=== PATIENT | female | born 1970 | race Caucasian/White ===

== ENCOUNTER 2016-10-08 01:35 | Inpatient (IN) | payer OTHER ==
[~2016-10-08] VITALS: Ht 165.1 cm; Wt 72.2 kg
[2016-10-08] VITALS (10 sets, daily range): BP systolic 97–118; BP diastolic 46–64; PULSE 93–112; TEMP 98.1–99.9
[2016-10-08] MEDS ORDERED: PRIL40 PO (02:22)
[2016-10-08] MEDS ORDERED: ULTRAM 50MG TAB50 MG (02:23)
[2016-10-08] MEDS ORDERED: CELEBREX 200MG200 MG (02:23)
[2016-10-09] VITALS (7 sets, daily range): BP systolic 92–136; BP diastolic 51–67; PULSE 108–123; TEMP 97.8–100.8
[2016-10-10] VITALS (7 sets, daily range): BP systolic 94–119; BP diastolic 60–68; PULSE 77–109; TEMP 97.5–100.1
[2016-10-10] MEDS ORDERED: NORCO 325 MG-51 TAB PO (05:23)
[2016-10-10] MEDS ORDERED: AMOXICILLIN 8751 TAB PO (05:23)
[2016-10-10] MEDS ORDERED: COLACE 100100 MG/CAP PO (05:25)
[2016-10-10 07:12] LABS: BASO % 0.2 % (0.0-2.0); EOS # 0.1 (0.0-0.7); EOS % 0.5 % (0-4.0); GRAN # 9.4 (1.4-6.5); GRAN % 86.9 % (42.2-75.2); HEMATOCRIT 37.5 % (37.0-47.0); HEMOGLOBIN 12.4 g/dl (12.5-16.0); LYMPH # 0.8 (1.2-3.4); LYMPH % 7.7 % (20.0-51.0); MEAN CELL VOLUME 88 fl (80.0-100.0); MEAN CORPUSCULAR HEMOGLOBIN 29 pg (27.0-31.0); MEAN CORPUSCULAR HGB CONC 33 g/dl (33.0-37.0); MEAN PLATELET VOLUME 9.9 fl (7.4-10.4); MONO # 0.4 (0.1-0.6); PLATELET COUNT 207 K/mm3 (130-400); RED BLOOD COUNT 4.28 M/mm3 (4.10-5.30); REDCELL DISTRIBUTION WIDTH-CV 13.7 % (11.5-14.5); WHITE BLOOD COUNT 10.8 K/mm3 (4.8-10.8)
[2016-10-10 08:11] LABS: CALCIUM 8.3 mg/dL (8.4-10.2); CREATININE, serum 0.72 mg/dL (0.52-1.25)
[2016-10-10 08:12] LABS: POTASSIUM 2.7 mmol/L (3.4-5.0)
[2016-10-11 05:36] VITALS: BP 99/64; PULSE 94; TEMP 98.7
[2016-10-11 06:09] LABS: BASO % 0.3 % (0.0-2.0); EOS # 0.2 (0.0-0.7); EOS % 2.8 % (0-4.0); GRAN # 5.7 (1.4-6.5); HEMOGLOBIN 12.5 g/dl (12.5-16.0); LYMPH % 12.7 % (20.0-51.0); MEAN CELL VOLUME 86 fl (80.0-100.0); MEAN CORPUSCULAR HEMOGLOBIN 29 pg (27.0-31.0); MEAN CORPUSCULAR HGB CONC 34 g/dl (33.0-37.0); MEAN PLATELET VOLUME 9.3 fl (7.4-10.4); MONO # 0.6 (0.1-0.6); MONO % 8.5 % (1.7-9.3); PLATELET COUNT 223 K/mm3 (130-400); RED BLOOD COUNT 4.25 M/mm3 (4.10-5.30); REDCELL DISTRIBUTION WIDTH-CV 13.6 % (11.5-14.5); WHITE BLOOD COUNT 7.6 K/mm3 (4.8-10.8)
[2016-10-11 06:18] LABS: CALCIUM 8.2 mg/dL (8.4-10.2); CREATININE, serum 0.66 mg/dL (0.52-1.25)
[2016-10-11 06:20] LABS: HEMATOCRIT 36.6 % (37.0-47.0)
[2016-10-11 10:30] VITALS: BP 92/55; PULSE 90; TEMP 99.9
[2016-10-11 14:06] VITALS: BP 104/66; PULSE 90; TEMP 99
== END 2016-10-11 15:51 | disposition home or self-care (01) | DRG 340 ==
LOC: SURG 01:35
PROVIDERS: Surgery
PROC: 0DTJ4ZZ Resection of Appendix, Percutaneous Endoscopic Approach (ICD-10-PCS; principal; 2016-10-08 10:00)
DX: K35.2 Acute appendicitis with generalized peritonitis (principal)
CPT/HCPCS: A9284; J1885; J2270; J2405; J2543; J2704; J2710; J2765; J3010; J7030; J7050; J7120